=== PATIENT | female | born 1960 | race Caucasian/White ===

== ENCOUNTER 2022-08-12 13:22 | Inpatient (IN) | payer MEDICAID, OTHER ==
[~2022-08-12] VITALS: Ht 154.9 cm; Wt 78.0 kg
[2022-08-12 15:15] LABS: HEMATOCRIT. 39.8 % (36.0-48.0); HEMOGLOBIN. 13.1 g/dL (12.0-16.0); MEAN CORPUSCULAR HEMOGLOBIN 30.9 pg (28.0-32.0); MEAN CORPUSCULAR VOLUME 93.6 fL (81.0-99.0); PLATELET 224 x1000/uL (130-400); RED BLOOD CELL COUNT 4.26 mill/uL (4.2-5.4); RED CELL DISTRIBUTION WIDTH 16.7 % (11.6-14.6)
[2022-08-12 15:20] LABS: CHLORIDE 105 mEq/L (98-107)
[2022-08-12 15:55] LABS: PLATELET ESTIMATE NORMAL
[2022-08-12] MEDS ORDERED: ACETAMINOPHEN 325MG TABLET PO ONE (17:00)
[2022-08-12] MEDS ORDERED: IBUPROFEN 400MG TABLET PO ONE (17:00)
[2022-08-12] MEDS ORDERED: CLONIDINE 0.1MG TABLET PO PRN (20:30)
[2022-08-12] MEDS ORDERED: DIPHENHYDRAMINE 50MG/ML VIAL IV PRN (20:30)
[2022-08-12] MEDS ORDERED: NITROGLYCERIN 0.4MG TABLET SL SL PRN (20:30)
[2022-08-12] MEDS ORDERED: IPRATROPIUM/ALBUTEROL 0.5-3(2.5)MG/3ML NEB HHN PRN (20:30)
[2022-08-12] MEDS ORDERED: GUAIFENESIN 200MG/10ML SUGAR FREE UDC PO PRN (20:30)
[2022-08-12] MEDS ORDERED: MAGNESIUM/ALUMINUM HYDROXIDE/SIMETHICONE 30ML UDC PO PRN (20:30)
[2022-08-12] MEDS ORDERED: DOCUSATE SODIUM 100MG CAPSULE PO PRN (20:30)
[2022-08-12] MEDS ORDERED: ACETAMINOPHEN 325MG TABLET PO PRN ×2 (20:30)
[2022-08-12] MEDS ORDERED: ONDANSETRON HCL 4MG/2ML INJ IV PRN (20:30)
[2022-08-12 21:10] LABS: INR 3.2; PROTHROMBIN TIME 30.9 sec (9.6-11.0)
[2022-08-12 21:33] LABS: BG BASE EXCESS 0.6 mmol/L (-2.0-2.0); BG CARBOXYHEMOGLOBIN 0.2 % (0.5-1.5); BG DEOXYHEMOGLOBIN 3.6 % (0.0-5.0); BG FRACTION INSPIRED OXYGEN 21; BG HCO3 ACT 25.1 mmol/L (22.0-26.0); BG METHEMOGLOBIN 0.3 % (0.0-1.5); BG OXYGEN SATURATION 96.4 % (92.0-98.5); BG OXYHEMOGLOBIN 95.9 % (94.0-97.0); BG PCO2 39.9 mmHg (35.0-45.0); BG PH 7.417 (7.350-7.450); BG PO2 85.4 mmHg (75.0-100.0); BG SAMPLE SITE RIGHT RADIAL; BG TOTAL HEMOGLOBIN 12.8 g/dL (12.0-18.0); BG VENT MODE ROOM AIR
[2022-08-12] MEDS ORDERED: AZITHROMYCIN 500MG/250ML 250 ML IV NR (22:00)
[2022-08-12 23:22] LABS: CREATINE KINASE 37 IU/L (26-192); CREATINE KINASE MB FRACTION < 1.0 ng/mL (0.5-3.6)
[2022-08-13 00:20] VITALS: BP 144/69
[2022-08-13 00:47] LABS: CLARITY URINE CLEAR (CLEAR); COLOR URINE YELLOW (YELLOW); KETONES URINE NEGATIVE (NEGATIVE); LEUKOCYTE ESTERASE URINE NEGATIVE (NEGATIVE); NITRITE URINE NEGATIVE (NEGATIVE); OCCULT BLOOD URINE NEGATIVE (NEGATIVE); PROTEIN URINE NEGATIVE (NEGATIVE); SPECIFIC GRAVITY URINE 1.012 (1.005-1.030); UROBILINOGEN URINE 0.2 E.U./dL (0.2-1.0)
[2022-08-13] MEDS ORDERED: SITA50TA3 PO (01:01)
[2022-08-13] MEDS ORDERED: AMIO100T4 PO (01:01)
[2022-08-13] MEDS ORDERED: EMPA10TA PO (01:01)
[2022-08-13] MEDS ORDERED: DIGO250T79 PO (01:01)
[2022-08-13] MEDS ORDERED: ATOR80TA PO (01:01)
[2022-08-13] MEDS ORDERED: METF500S9 PO (01:01)
[2022-08-13] MEDS ORDERED: ASPI-1406 PO (01:01)
[2022-08-13] MEDS ORDERED: CARV25TA47 PO (01:01)
[2022-08-13] MEDS ORDERED: WARF1TAB85 MT ×2 (01:01)
[2022-08-13] MEDS ORDERED: SPIR25TA6 PO (01:01)
[2022-08-13] MEDS ORDERED: LOSA100T32 PO (01:01)
[2022-08-13] MEDS ORDERED: *PATIENT'S OWN MEDICATION STORAGE XX SCH (01:30)
[2022-08-13 04:00] VITALS: BP 128/68
[2022-08-13 06:17] LABS: HEMATOCRIT. 37.2 % (36.0-48.0); HEMOGLOBIN. 12.4 g/dL (12.0-16.0); MEAN CORPUSCULAR VOLUME 92.5 fL (81.0-99.0); MEAN PLATELET VOLUME 8.4 fl (7.4-10.4); PLATELET 221 x1000/uL (130-400); RED BLOOD CELL COUNT 4.02 mill/uL (4.2-5.4); RED CELL DISTRIBUTION WIDTH 16.3 % (11.6-14.6)
[2022-08-13 07:05] LABS: CHLORIDE 106 mEq/L (98-107)
[2022-08-13 08:00] VITALS: BP 129/78
[2022-08-13 08:41] LABS: CREATINE KINASE 41 IU/L (26-192); CREATINE KINASE MB FRACTION < 1.0 ng/mL (0.5-3.6); HDL CHOLESTEROL 50 mg/dL (40-59); T4 FREE 1.57 ng/dL (0.76-1.46)
[2022-08-13] MEDS ORDERED: ASPIRIN 81MG TABLET PO SCH (09:00)
[2022-08-13] MEDS ORDERED: LOSARTAN POTASSIUM 25 MG TABLET PO SCH (09:00)
[2022-08-13] MEDS ORDERED: METFORMIN HCL 500MG TABLET PO SCH (09:00)
[2022-08-13 12:00] VITALS: BP 117/66
[2022-08-13] MEDS ORDERED: IPRATROPIUM BROMIDE (0.02%) 0.5MG/2.5ML NEB HHN PRN (12:30)
[2022-08-13] MEDS ORDERED: ALBUTEROL (0.083%) 2.5MG/3ML NEB HHN PRN (12:30)
[2022-08-13] MEDS ORDERED: GUAI-453 MT (12:56)
[2022-08-13 15:02] LABS: LDL CHOLESTEROL 102 mg/dL (5-100)
[2022-08-13 16:00] VITALS: BP 124/61
[2022-08-13 16:34] VITALS: BP 120/71
[2022-08-13] MEDS ORDERED: GUAIFENESIN 600MG ER TABLET PO SCH (21:00)
[2022-08-13] MEDS ORDERED: FAMOTIDINE 20MG TABLET PO SCH (21:00)
[2022-08-13] MEDS ORDERED: INFLUENZA VACCINE 05/PF 0.5 ML SYRINGE IM ONE (21:00)
[2022-08-13] MEDS ORDERED: PNEUMOCOCCAL 23-VAL P-SAC VAC 0.5 ML IM ONE (21:00)
[2022-08-13] MEDS ORDERED: AZITHROMYCIN 500 MG in DEXT 5% WATER 250 ML IV SCH (22:00)
[2022-08-13 22:42] LABS: PLATELET ESTIMATE NORMAL
[2022-08-14 11:37] LABS: DIGOXIN 1.1 ng/mL (0.9-2.0)
== END 2022-08-13 18:20 | disposition home or self-care (01) | DRG 145 ==
LOC: ER 13:22 → MICUSO 18:44 → EDBEDREQTM 19:12 → EDBEDREQ 19:12 → 8WST 08-13 00:25
PROVIDERS: ADMIT Hospitalist; ATTEND Hospitalist
DX: J20.9 Acute bronchitis, unspecified (principal); I50.43 Acute on chronic combined systolic (congestive) and diastolic (congestive) heart failure; I11.0 Hypertensive heart disease with heart failure; I24.9 Acute ischemic heart disease, unspecified; E11.9 Type 2 diabetes mellitus without complications; Z95.2 Presence of prosthetic heart valve; Z68.32 Body mass index [BMI] 32.0-32.9, adult; Z20.822 Contact with and (suspected) exposure to COVID-19; E66.9 Obesity, unspecified; E78.00 Pure hypercholesterolemia, unspecified; Z95.810 Presence of automatic (implantable) cardiac defibrillator
CPT/HCPCS: 36415; 36600; 71045; 80053; 80061; 80162; 81003; 82375; 82550; 82553; 82805; 83036; 83880; 84439; 84443; 84484; 85025; 87426; 87804; 90686; 90732; 93005; 93306; 99285; C9803; J0456; J7060